=== PATIENT | female | born 1985 | race Caucasian/White ===

== ENCOUNTER 2020-02-07 20:24 | Emergency (ER) | payer OTHER, SELFPAY ==
--- NOTE | ~2020-02-07 | XR_ITS ---
EXAMINATION: XR chest 1V portable DATE: 02/07/2020 21:32 INDICATION: Cough and shortness of breath. Sore throat. TECHNIQUE: A single frontal view of the chest was obtained. COMPARISON: None. FINDINGS: The chest demonstrates clear lungs without pneumonia, pleural effusion, or pneumothorax. Th e heart size is normal. IMPRESSION: 1. No acute cardiopulmonary disease. Reviewed, dictated and finalized at location A.
[2020-02-07 20:26] VITALS: BP 122/69; PULSE 76; RESP 16; TEMP 36.8; O2SAT 100
--- NOTE | 2020-02-07 21:10 | ED.SOB ---
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 [employer] He tested positive for COVID so when she felt a little short of breath it was suggested that she to come to the ER and get checked herself She has no productive cough no fever mild sore throat MD elicited complaint: shortness of breath Context: other (exposure) Related Data Home Medications Medication Instructions Recorded Confirmed drospirenone-e.estradiol-lm.FA tablet 02/07/20 02/07/20 ergocalciferol (vitamin D2) 02/07/20 Allergies Allergy/AdvReac Type Severity Reaction Status Date / Time Penicillins Allergy Unknown Rash Verified 02/07/20 20:33 Review of Systems Constitutional: Constitutional: Denies chills and Denies fever(s) ENT: Reports sore throat Cardiovascular: Cardiovascular: Denies chest pain Respiratory: Respiratory: Reports dyspnea Gastrointestinal: Gastrointestinal: Denies diarrhea and Denies vomiting Genitourinary: Genitourinary: Reports no additional female genitourinary complaints PMFSH Social History Social History Smoking status: Never smoker Alcohol intake: never Exam Const: General: healthy appearing, no acute distress and well developed Nutritional Appearance: well nourished Orientation/consciousness: patient oriented x3 (alert) and Other orientation findings (Alert) Limitations: no limitations HENMT: Head: normocephalic and atraumatic Ears: external ears normal General nose exam: No nasal discharge present Face and sinus: face symmetric Mouth: Yes tongue normal and Yes moist mucous membranes Throat: other (No exudate, no erythema) Eyes: Conjunctivae: conjunctivae normal Sclera: sclerae normal EOM: EOMs intact bilaterally Neck: Neck: full ROM, no lymphadenopathy and supple Thyroid: thyroid normal Resp: Effort & Inspection: normal respiratory effort Auscultation: clear to auscultation bilaterally, no rales, no rhonchi, no wheezes and other (breath sounds equal) Cardio: Rate: regular rate Rhythm: regular rhythm Heart sounds: no gallops and no murmurs GI: GI Palp: No abdominal tenderness Auscultation: other (bowel sounds present) Back/Spine/Pelvis: Thoracic/Lumbar Spine: thoracic and lumbar spine normal to inspection Skin: General skin exam: normal color and no rashes or lesions noted Rashes: no rashes Neuro: General: patient oriented x3 (alert) and moves all extremities Cranial nerves: Yes facial symmetry Speech: normal speech Motor exam (neuro): Motor abnormalities not present Extrem: General: normal to inspection and full ROM Psych: Affect: normal affect Course Vital Signs Vital signs: Vital Signs Temperature 36.8 C 02/07/20 20:26 Pulse Rate 76 02/07/20 20:26 Respiratory Rate 16 02/07/20 20:26 Blood Pressure 122/69 02/07/20 20:26 Pulse Oximetry 100 02/07/20 20:26 Temperature 36.8 C 02/07/20 20:26 Pulse Rate 76 02/07/20 20:26 Respiratory Rate 16 02/07/20 20:26 Blood Pressure 122/69 02/07/20 20:26 Pulse Oximetry 100 02/07/20 20:26 MDM - SOB/Dyspnea ABG Data Interpretation: SAO2 = 100% Discharge Plan Discharge Clinical Impression: Close exposure to COVID-19 virus Patient Disposition: Home, Self-Care Condition: Stable Instructions: COVID-19 (Coronavirus Disease 2019) (ED) Prescriptions: No Action ergocalciferol (vitamin D2) 1,250 mcg (50,000 unit) capsule RF: 0 drospirenone-e.estradiol-lm.FA 3-0.02-0.451 mg (24) (4) tablet RF: 0 Follow-up/Referrals: Rula,MATIAS Dillard [Primary Care Provider] - (covid results take 2-3 days to return)
[2020-02-07 22:12] VITALS: BP 110/72; PULSE 89; RESP 18; TEMP 36.7; O2SAT 100
--- NOTE | 2020-02-08 07:11 | ECG_ITS ---
Measurements Intervals [place] Rate: 71 P: 63 AR: 119 QRS: 75 QRSD: 86 T: 48 QT: 385 QTc: 419 Interpretive Statements SINUS RHYTHM WITH SHORT AR INTERVAL BORDERLINE ECG Electronically Signed On 02-08-2020 11:52:19 CDT by Mark Tanner D.O.
[2020-02-08 13:59] LABS: SARS-CoV-2 RNA PCR Negative
== END 2020-02-07 22:14 | disposition home or self-care (01) ==
PROVIDERS: Emergency Provider Emergency Medicine; PCP Physician Assistant
DX: Z20.828 Contact with and (suspected) exposure to other viral communicable diseases (principal)
CPT/HCPCS: 71045; 87635; 93005; 99283; C9803; U0003

== ENCOUNTER 2020-08-06 06:51 | Outpatient (NON) | payer OTHER, SELFPAY ==
[2020-08-07 00:16] LABS: SARS-CoV-2 RNA PCR Negative
== END 2020-08-06 06:52 ==
PROVIDERS: PCP Physician Assistant; Visit Provider Physician Assistant
DX: Z20.822 Contact with and (suspected) exposure to COVID-19 (principal); R51.9 Headache, unspecified
CPT/HCPCS: C9803; U0003; U0005

== ENCOUNTER 2024-02-10 09:21 | Emergency (ER) | payer BC, SELFPAY ==
[2024-02-10 09:33] VITALS: BP 109/74; PULSE 73; RESP 16; TEMP 36.6; O2SAT 100
--- NOTE | 2024-02-10 09:38 | ED.URI ---
HPI - URI/Sore Throat General Chief Complaint: Upper Respiratory Infection Stated Complaint: Sore Throat/Headache Time Seen by Provider: 02/10/24 09:49 Source: patient Mode of arrival: ambulatory Limitations: no limitations History of Present Illness HPI Narrative: 38 y/o female presents with chief complaint of sore throat and headache. She was seen via tele-health visit about 8 days ago and prescribed a azithromycin for possible strep. Her symptoms started to improve, but returned again after finishing the antibiotics 2 days ago. She denies any shortness of breath, chest pain, congestion, sinus pressure, cough, fevers/chills MD elicited complaint: sore throat and nasal congestion Related Data Home Medications Medication Instructions Recorded Confirmed drospiren-stuart.estrad-l.mefol 3 1 tablet PO DAILY 02/07/20 02/10/24 mg-0.02 mg-0.451 mg(24)/0.451 mg(4)tablet ergocalciferol (vitamin D2) 1,250 1,250 mcg PO DAILY 02/07/20 02/10/24 mcg (50,000 unit) capsule Allergies Allergy/AdvReac Type Severity Reaction Status Date / Time Penicillins Allergy Unknown Rash Verified 02/10/24 09:35 Review of Systems Review of Systems: Pertinent positives per HPI. Patient denies any fever, chills, rash, visual changes, dizziness, cough, shortness of breath, chest pain, palpitations, nausea, vomiting, diarrhea, constipation, abdominal pain, or any urinary issues. PMFSH Social History Social History Smoking status: Never smoker Alcohol intake: never Comments At the time of my signature, I reviewed and agree with the nursing past medical, surgical, social, and family history. There is no relevant family history pertinent to the patient complaint. Exam Narrative: General: Well-developed, well nourished, in no apparent distress Head: Normocephalic, atraumatic Eyes: Pupils equally round, EOM intact, sclera and conjunctive clear, no discharge, lids normal Ears: Hearing normal. Nose: Nares patent, no sinus tenderness. Mouth: Oral pharynx without lesions or masses, good dentition, MMM. Neck: Supple, trachea midline, no enlargement of anterior or posterior cervical nodes, no thyroid masses or goiter palpable. Cardio: Regular rate and rhythm, s1 and s2 normal, no murmur appreciated. Resp: Clear to auscultation bilaterally, no rhonchi, rales, wheezing or rubs Course Course Emergency Course: Portions of this record may have been created with voice recognition software. Level of Care: Express Care Visit Vital Signs Vital signs: Vital signs reviewed MDM - URI/Sore Throat MDM Narrative Medical decision making narrative: At the time of visit patient is resting comfortably on the exam table. Patient appears to be nontoxic. Labs: Strep test was negative. We will send strep for culture. Plan: I suspect patient has URI/pharyngitis. Will place patient on prednisone. Supportive measures were discussed with the patient and they voiced understanding discharge instructions and agrees to treatment plan. Return precautions reviewed Differential Diagnosis Differential diagnosis: Likely upper respiratory infection, otitis media, sinusitis, viral infection, bronchitis, influenza, pharyngitis and other (COVID) Discharge Plan Discharge Clinical Impression: Upper respiratory infection Qualifiers: URI type: unspecified URI Qualified Code(s): J06.9 - Acute upper respiratory infection, unspecified Pharyngitis Qualifiers: Pharyngitis/tonsillitis etiology: unspecified etiology Qualified Code(s): J02.9 - Acute pharyngitis, unspecified Patient Disposition: Home, Self-Care Condition: Stable Instructions: Antibiotic Form, Pharyngitis (ED), Cold Symptoms (ED) Additional Instructions: Strep test was negative. We will send strep for culture if this comes back positive we will contact him place you on antibiotics at that time. Take prescription medications onl
[2024-02-10 09:59] LABS: EDSTREPNEGPOS1 Presumptive Negative
== END 2024-02-10 10:08 | disposition home or self-care (01) ==
PROVIDERS: Emergency Provider Nurse Practitioner Family; PCP Physician Assistant
DX: J06.9 Acute upper respiratory infection, unspecified (principal); J02.9 Acute pharyngitis, unspecified
CPT/HCPCS: 87081; 87880; 99213; G0463